=== PATIENT | female | born 1970 | race Caucasian/White ===

== ENCOUNTER 2016-12-20 13:55 | Emergency (ER) | payer MEDICARE, MEDICAID ==
[2016-12-20 14:08] VITALS: BP 145/106
[2016-12-20] MEDS ORDERED: Sodium Chloride 0.9% 1,000 ML IV ONE (14:17)
[2016-12-20 15:48] LABS: ACETAMINOPHEN < 10 ug/mL (10-30)
[2016-12-20] MEDS ORDERED: Ketorolac 30 MG/ML SDV IVPUSH ONE (17:49)
[2016-12-20] MEDS ORDERED: Ketorolac 60 MG/2 ML SDV IM ONE (17:51)
--- NOTE | 2016-12-20 18:44 | EDM.PDOC ---
ED HPI GENERAL MEDICAL PROBLEM - General Chief Complaint: Behavioral/Psych Stated Complaint: SUICIDAL Time Seen by Provider: 12/20/16 14:06 Source of Information: Reports: Patient, Family History Limitations: Reports: No Limitations - History of Present Illness INITIAL COMMENTS - FREE TEXT/NARRATIVE: 46 years old w f came with her family to the ed because of suicidal ideation, No Plan, denied any acute physical issues. Onset: Today Onset Date: 12/20/16 Onset Time: 05:00 Duration: Hour(s): Location: Reports: Generalized Improves with: Reports: None Worsens with: Reports: None - Related Data Allergies Allergy/AdvReac Type Severity Reaction Status Date / Time pregabalin [From Lyrica] Allergy Edema Verified 12/20/16 14:20 Home Meds: Home Meds ALPRAZolam [ALPRAZolam XR] 1 mg PO BID 12/20/16 [History] Desvenlafaxine [Desvenlafaxine ER] 100 mg PO DAILY 12/20/16 [History] Prazosin HCl [Prazosin] 1 mg PO DAILY 12/20/16 [History] QUEtiapine [SEROquel] 100 mg PO BEDTIME 12/20/16 [History] Ranitidine [Zantac] 150 mg PO BEDTIME 12/20/16 [History] Past Medical History - Past Health History Medical/Surgical History: Denies Medical/Surgical History Gastrointestinal History: Reports: [employer]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: Musculoskeletal History: Reports: Fibromyalgia Neurological History: Reports: Concussion, Migraines Psychiatric History: Reports: ADD, Anxiety, Depression, Panic Attack, Psych Hospitalization(s), Suicide Attempt, Suicidal Ideation - Infectious Disease History Infectious Disease History: Reports: Chicken Pox - Past Surgical History HEENT Surgical History: Reports: Tonsillectomy GI Surgical History: Reports: Colonoscopy, EGD Female Surgical History: Reports: Hysterectomy Social & Family History - Tobacco Use Smoking Status *Q: Never Smoker Second Hand Smoke Exposure: Yes - Caffeine Use Caffeine Use: Reports: None - Alcohol Use Days Per Week of Alcohol Use: 1 Number of Drinks Per Day: 1 Total Drinks Per Week: 1 - Recreational Drug Use Recreational Drug Use: No ED ROS GENERAL - Review of Systems Review Of Systems: See Below Constitutional: Reports: No Symptoms HEENT: Reports: No Symptoms Respiratory: Reports: No Symptoms Cardiovascular: Reports: No Symptoms Endocrine: Reports: No Symptoms GI/Abdominal: Reports: No Symptoms : Reports: No Symptoms Musculoskeletal: Reports: No Symptoms Skin: Reports: No Symptoms Neurological: Reports: No Symptoms Psychiatric: Reports: Suicidal Ideation Hematologic/Lymphatic: Reports: No Symptoms Immunologic: Reports: No Symptoms ED EXAM, BEHAVIORAL HEALTH - Physical Exam Exam: See Below Exam Limited By: No Limitations General Appearance: Alert, WD/WN, Other (depressed, crying) Eye Exam: Bilateral Eye: Normal Inspection Ears: Normal External Exam Nose: Normal Inspection Throat/Mouth: Normal Inspection Head: Atraumatic, Normocephalic Neck: Normal Inspection, Supple, Non-Tender Respiratory/Chest: No Respiratory Distress, Lungs Clear, Normal Breath Sounds Cardiovascular: Normal Peripheral Pulses, Regular Rate, Rhythm, No Edema GI/Abdominal: Normal Bowel Sounds, Soft, Non-Tender (Female) Exam: Deferred Rectal (Female) Exam: Deferred Back Exam: Normal Inspection Extremities: Normal Inspection, Increased Warmth Neurological: Alert, Normal Mood/Affect, CN II-XII Intact, Normal Cognition Psychiatric: Other (suicidal ideation) Skin Exam: Warm, Dry, Intact, Normal color COURSE, BEHAVIORAL HEALTH COMP - Course Vital Signs: Last Vital Signs Temp 36.7 C 12/20/16 14:06 Pulse 77 12/20/16 14:06 Resp 16 12/20/16 14:06 BP 145/106 H 12/20/16 14:06 Pulse Ox 100 12/20/16 14:06 46 years old w f came with her family to the ed because of suicidal ideation, No Plan, denied any acute physical issues pt was signed out to Dr. Best at 7 pm due to shift changes, pending Psych consultation. Pt was later -after 7 pm - on d/c'd by Dr. Best, as i was told on my next shift, next day. Orders, Labs, Meds: Laboratory Tests 12/20/16 12/20/16 12/20/16 Range/Units 14:40 14:40 14:45 WBC 6.0 (4.5-12.0) X10-3/uL RBC 4.89 (3.23-5.20) x10(6)uL Hgb 15.3 (11.5-15.5) g/dL Hct 43.5 (30.0-51.3) % MCV 89.0 (80-96) fL MCH 31.2 (27.7-33.6) pg MCHC 35.1 (32.2-35.4) g/dL RDW 11.4 L (11.5-15.5) % Plt Count 228 (125-369) X10(3)uL MPV 8.4 (7.4-10.4) fL Neut % (Auto) 67.9 (46-82) % Lymph % (Auto) 26.3 (13-37) % [place] % (Auto) 5.1 (4-12) % Eos % (Auto) 0 L (1.0-5.0) % Baso % (Auto) 1 (0-2) % Neut # (Auto) 4.1 (1.6-8.3) # Lymph # (Auto) 1.6 (0.6-5.0) # [place] # (Auto) 0.3 (0.0-1.3) # Eos # (Auto) 0.0 (0.0-0.8) # Baso # (Auto) 0.0 (0.0-0.2) # Sodium (135-145) mmol/L Potassium (3.5-5.3) mmol/L Chloride (100-110) mmol/L Carbon Dioxide (23-29) mmol/L BUN (5-20) mg/dL Creatinine (0.6-1.3) mg/dL Est Cr Clr Drug Dosing mL/min Estimated GFR (MDRD) (>60) BUN/Creatinine Ratio (9-20) Glucose (80-116) mg/dL Calcium (8.6-10.2) mg/dL Total Bilirubin (0.1-1.3) mg/dL Direct Bilirubin (0.1-0.2) mg/dL AST (5-27) IU/L ALT (14-26) IU/L Alkaline Phosphatase (56-112) IU/L Total Protein (6.0-8.0) g/dL Albumin (3.5-5.2) g/dL Amylase (28-100) U/L TSH, Ultra Sensitive (0.4-5.5) nlU/mL Urine HCG, Qual Negative (NEGATIVE) Salicylates (5.0-25.0) mg/dL Urine Opiates Screen Negative (NEGATIVE) Ur Oxycodone Screen Negative (NEGATIVE) Ur Propoxyphene Screen Negative (NEGATIVE) Acetaminophen (10-30) ug/mL Ur Barbituates Screen Negative (NEGATIVE) Ur Tricyclics Screen Negative (NEGATIVE) Ur Phencyclidine Scrn Negative (NEGATIVE) Ur Amphetamine Screen Negative (NEGATIVE) Urine MDMA Screen Negative (NEGATIVE) U Benzodiazepines Scrn Positive H (NEGATIVE) U Cocaine Metab Screen Negative (NEGATIVE) U Marijuana (THC) Screen Negative (NEGATIVE) Ethyl Alcohol (<0.01) % 12/20/16 12/20/16 12/20/16 Range/Units 14:45 14:45 14:45 WBC (4.5-12.0) X10-3/uL RBC (3.23-5.20) x10(6)uL Hgb (11.5-15.5) g/dL Hct (30.0-51.3) % MCV (80-96) fL MCH (27.7-33.6) pg MCHC (32.2-35.4) g/dL RDW (11.5-15.5) % Plt Count (125-369) X10(3)uL MPV (7.4-10.4) fL Neut % (Auto) (46-82) % Lymph % (Auto) (13-37) % [place] % (Auto) (4-12) % Eos % (Auto) (1.0-5.0) % Baso % (Auto) (0-2) % Neut # (Auto) (1.6-8.3) # Lymph # (Auto) (0.6-5.0) # [place] # (Auto) (0.0-1.3) # Eos # (Auto) (0.0-0.8) # Baso # (Auto) (0.0-0.2) # Sodium 136 (135-145) mmol/L Potassium 3.6 (3.5-5.3) mmol/L Chloride 103 (100-110) mmol/L Carbon Dioxide 26 (23-29) mmol/L BUN 13 (5-20) mg/dL Creatinine 0.8 (0.6-1.3) mg/dL Est Cr Clr Drug Dosing 83.13 mL/min Estimated GFR (MDRD) > 60 (>60) BUN/Creatinine Ratio 16.3 (9-20) Glucose 106 (80-116) mg/dL Calcium 8.9 (8.6-10.2) mg/dL Total Bilirubin 0.5 (0.1-1.3) mg/dL Direct Bilirubin 0.0 L (0.1-0.2) mg/dL AST 15 D (5-27) IU/L ALT 14 (14-26) IU/L Alkaline Phosphatase 60 (56-112) IU/L Total Protein 7.9 (6.0-8.0) g/dL Albumin 4.2 (3.5-5.2) g/dL Amylase 50 (28-100) U/L TSH, Ultra Sensitive 0.90 (0.4-5.5) nlU/mL Urine HCG, Qual (NEGATIVE) Salicylates < 4.0 L (5.0-25.0) mg/dL Urine Opiates Screen (NEGATIVE) Ur Oxycodone Screen (NEGATIVE) Ur Propoxyphene Screen (NEGATIVE) Acetaminophen < 10 L (10-30) ug/mL Ur Barbituates Screen (NEGATIVE) Ur Tricyclics Screen (NEGATIVE) Ur Phencyclidine Scrn (NEGATIVE) Ur Amphetamine Screen (NEGATIVE) Urine MDMA Screen (NEGATIVE) U Benzodiazepines Scrn (NEGATIVE) U Cocaine Metab Screen (NEGATIVE) U Marijuana (THC) Screen (NEGATIVE) Ethyl Alcohol < 0.01 (<0.01) % Medications Discontinued Medications Generic Name Dose Route Start Last Admin Trade Name Freq PRN Reason Stop Dose Admin Sodium Chloride 1,000 mls @ 999 mls/hr 12/20/16 14:17 Normal Saline IV 12/20/16 15:17 .BOLUS ONE Ketorolac Tromethamine 30 mg 12/20/16 17:49 Toradol IVPUSH 12/20/16 17:50 ONETIME ONE Ketorolac Tromethamine 60 mg 12/20/16 17:51 12/20/16 18:15 Toradol IM 12/20/16 17:52 60 mg ONETIME ONE Administration Departure - Departure Time of Disposition: 20:00 Disposition: Home, Self-Care 01 Condition: good Clinical Impression: Suicidal ideation - Discharge Information Referrals: Zachary Sebastian MD [Primary Care Provider] - Forms: ED Department Discharge Additional Instructions: Keep appointment with therapist in am. Stay with responsible adult tonight. If your feeling get worse during night return to ED.
== END 2016-12-20 19:25 | disposition home or self-care (01) ==
LOC: FB.ED 13:55
DX: R45.851 Suicidal ideations (principal); F41.9 Anxiety disorder, unspecified; F32.9 Major depressive disorder, single episode, unspecified; Z90.710 Acquired absence of both cervix and uterus; Z79.899 Other long term (current) drug therapy; Z88.8 Allergy status to other drugs, medicaments and biological substances
CPT/HCPCS: 36415; 80048; 80076; 80305; 81025; 82150; 84443; 85025; 99284; G0480; J1885

== ENCOUNTER 2017-04-23 12:41 | Emergency (ER) | payer OTHER, MEDICARE, MEDICAID ==
[2017-04-23] MEDS ORDERED: Lidocaine 2% with EPINEPHrine 1:100,000 20 ML MDV INJECT ONE (12:42)
[2017-04-23] MEDS ORDERED: Lidocaine 1% with EPINEPHrine 1:100,000 20 ML MDV INJECT ONE (13:23)
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
[2017-04-23] MEDS ORDERED: Naproxen 500 MG Tab PO ONE (15:56)
[2017-04-23] MEDS ORDERED: Acetaminophen 325 MG Tab PO ONE (15:56)
[2017-04-23 18:03] LABS: ACETAMINOPHEN < 10 ug/mL (10-30)
[2017-04-23 22:54] VITALS: BP 132/68
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
== END 2017-04-23 20:40 | disposition home or self-care (01) ==
LOC: FB.ED 12:41
DX: S06.0X0A Concussion without loss of consciousness, initial encounter (principal); S81.011A Laceration without foreign body, right knee, initial encounter; S93.401A Sprain of unspecified ligament of right ankle, initial encounter; S00.83XA Contusion of other part of head, initial encounter; G43.909 Migraine, unspecified, not intractable, without status migrainosus; F98.8 Other specified behavioral and emotional disorders with onset usually occurring in childhood and adolescence; F41.9 Anxiety disorder, unspecified; F32.9 Major depressive disorder, single episode, unspecified; Z90.89 Acquired absence of other organs; Z88.8 Allergy status to other drugs, medicaments and biological substances; Z90.710 Acquired absence of both cervix and uterus; V49.9XXA Car occupant (driver) (passenger) injured in unspecified traffic accident, initial encounter
CPT/HCPCS: 12002; 36415; 70450; 70486; 71101; 72125; 73610; 80048; 80053; 80305; 81001; 81025; 84443; 85025; 99285; A9270; G0480; 99284

== ENCOUNTER 2017-05-28 17:41 | Emergency (ER) | payer MEDICARE, MEDICAID ==
[2017-05-28] MEDS ORDERED: Sodium Chloride 0.9% 1,000 ML IV SCH (18:00)
[2017-05-28 18:18] VITALS: BP 115/69
[2017-05-28] MEDS ORDERED: Sodium Chloride 0.9% 10 ML Syringe FLUSH PRN (18:19)
[2017-05-28 18:30] LABS: ACETAMINOPHEN < 10 ug/mL (10-30)
--- NOTE | 2017-05-28 22:20 | EDM.PDOCBH ---
ED HPI GENERAL MEDICAL PROBLEM - General Chief Complaint: Behavioral/Psych Stated Complaint: POSSIBLE OVERDOSE Time Seen by Provider: 05/28/17 18:09 Source of Information: Reports: Patient, EMS History Limitations: Reports: No Limitations - History of Present Illness INITIAL COMMENTS - FREE TEXT/NARRATIVE: 46 y.o.w.f came by ems to the ed because she took a "handful" of Depakote, unwitnessed. Pt stated she was "supid" to take them. She took them because she did want to be alone. He SO stated he wants to leave her. Pt denied any physical issues, no N/V/D. She attempted in the past suicide when she was admitted to the Hospital. Pt is scheduled to see her psychiatrist tomorrow and Monday. BP 115/61 pulse 65 Temp 35.5 RR 19 Pulse ox 97 Onset: Today Onset Date: 05/28/17 Onset Time: 14:00 Duration: Intermittent, Improving Quality: Reports: Other (depressed) Improves with: Reports: None Worsens with: Reports: None Context: Reports: Other (suicidal attempt) - Related Data Allergies Allergy/AdvReac Type Severity Reaction Status Date / Time pregabalin [From Lyrica] Allergy Edema Verified 05/28/17 18:07 Home Meds: Home Meds traZODone 100 mg PO BEDTIME 04/23/17 [History] Divalproex Sodium [Depakote ER] 1,000 mg PO BEDTIME 05/28/17 [History] FLUoxetine HCl [Prozac] 20 mg PO DAILY 05/28/17 [History] Past Medical History - Past Health History Medical/Surgical History: Denies Medical/Surgical History Cardiovascular History: Reports: None Respiratory History: Reports: None Gastrointestinal History: Reports: PUD Genitourinary History: Reports: None ANIMAL SURGEON History: Reports: Musculoskeletal History: Reports: Fibromyalgia Neurological History: Reports: Concussion, Migraines Psychiatric History: Reports: ADD, Anxiety, Depression, Panic Attack, Psych Hospitalization(s), Suicide Attempt, Suicidal Ideation Endocrine/Metabolic History: Reports: None Hematologic History: Reports: None Immunologic History: Reports: None Oncologic (Cancer) History: Reports: None Dermatologic History: Reports: None - Infectious Disease History Infectious Disease History: Reports: Chicken Pox - Past Surgical History Head Surgeries/Procedures: Reports: None HEENT Surgical History: Reports: Tonsillectomy Cardiovascular Surgical History: Reports: None GI Surgical History: Reports: Colonoscopy, EGD Female Surgical History: Reports: Hysterectomy Neurological Surgical History: Reports: None Social & Family History - Family History Family Medical History: Noncontributory - Tobacco Use Smoking Status *Q: Never Smoker Second Hand Smoke Exposure: Yes - Caffeine Use Caffeine Use: Reports: Coffee - Alcohol Use Days Per Week of Alcohol Use: 1 Number of Drinks Per Day: 1 Total Drinks Per Week: 1 - Recreational Drug Use Recreational Drug Use: No Other Recreational Drug Type: patient's friend said that patient is a drug seeker; prescribed drugs like narcotics and anti- anxiety medications. ED ROS GENERAL - Review of Systems Review Of Systems: See Below Constitutional: Reports: No Symptoms HEENT: Reports: No Symptoms Respiratory: Reports: No Symptoms Cardiovascular: Reports: No Symptoms Endocrine: Reports: No Symptoms GI/Abdominal: Reports: No Symptoms : Reports: No Symptoms Musculoskeletal: Reports: No Symptoms Skin: Reports: No Symptoms Neurological: Reports: No Symptoms Psychiatric: Reports: Suicidal Ideation Hematologic/Lymphatic: Reports: No Symptoms Immunologic: Reports: No Symptoms ED EXAM, BEHAVIORAL HEALTH - Physical Exam Exam: See Below Exam Limited By: No Limitations General Appearance: Alert, WD/WN, No Apparent Distress, Mild Distress Eye Exam: Bilateral Eye: Normal Inspection Ears: Normal External Exam Nose: Normal Inspection Throat/Mouth: Normal Inspection Head: Atraumatic, Normocephalic Neck: Normal Inspection Respiratory/Chest: No Respiratory Distress, Lungs Clear, Normal Breath Sounds Cardiovascular: Normal Peripheral Pulses, Regular Rate, Rhythm, No Edema, No Gallop GI/Abdominal: Normal Bowel Sounds (Female) Exam: Deferred Rectal (Female) Exam: Deferred Back Exam: Normal Inspection, Full Range of Motion Extremities: Normal Inspection, Normal Range of Motion Neurological: Alert, Normal Mood/Affect, CN II-XII Intact, Normal Cognition Psychiatric: Alert, Normal Affect, Normal Cognition, Oriented, Depressed Mood Skin Exam: Warm, Dry, Intact, Normal color, No rash EKG INTERPRETATION EKG Date: 05/28/17 Time: 18:45 Rhythm: NSR Rate (Beats/Min): 57 [place]: Normal P-Wave: Present QRS: Normal ST-T: Normal QT: Normal Comparison: NA - No Prior EKG COURSE, BEHAVIORAL HEALTH COMP - Course Vital Signs: Last Vital Signs Temp 35.5 C 05/28/17 18:09 Pulse 61 05/28/17 18:09 Resp 19 05/28/17 18:09 BP 115/69 05/28/17 18:09 Pulse Ox 99 05/28/17 18:09 46 y.o.w.f came by ems to the ed because she took a "handful" of Depakote, unwitnessed. Pt stated she was "supid" to take them. She took them because she did want to be alone. He SO stated he wants to leave her. Pt denied any physical issues, no N/V/D. She attempted in the past suicide when she was admitted to the Hospital. Pt is scheduled to see her psychiatrist tomorrow and Monday. BP 115/61 pulse 65 Temp 35.5 RR 19 Pulse ox 97 PE; Depressed mood, NL PE Labs: CBC Nl depakote level 28,4 (subtherapeutic) BMP Nl but potassium is 3.4 Poison control was called by nurse: Observe, draw Depakote level, NS Consultation: Psych Rosa: Pt is not suicidal and can be safely D/C with her to home and will see her PMD/Psych at 8 am Plan: D/C with instructions Orders, Labs, Meds: Active Orders 24 hr Category Date Time Status EKG Documentation Completion [RC] ASDIRECTED Care 05/28/17 18:44 Active Saline Lock Insert [OM.PC] Routine Oth 05/28/17 18:19 Ordered EKG 12 Lead [EK] Routine Ther 05/28/17 18:43 Ordered Laboratory Tests 05/28/17 05/28/17 05/28/17 Range/Units 18:05 18:05 18:05 WBC 6.0 (4.5-12.0) X10-3/uL RBC 4.70 (3.23-5.20) x10(6)uL Hgb 14.6 (11.5-15.5) g/dL Hct 42.5 (30.0-51.3) % MCV 90.4 (80-96) fL MCH 31.1 (27.7-33.6) pg MCHC 34.4 (32.2-35.4) g/dL RDW 11.6 (11.5-15.5) % Plt Count 153 (125-369) X10(3)uL MPV 9.4 (7.4-10.4) fL Neut % (Auto) 52.7 (46-82) % Lymph % (Auto) 39.8 H (13-37) % Norman % (Auto) 6.4 (4-12) % Eos % (Auto) 0 L (1.0-5.0) % Baso % (Auto) 1 (0-2) % Neut # (Auto) 3.1 (1.6-8.3) # Lymph # (Auto) 2.4 (0.6-5.0) # Norman # (Auto) 0.4 (0.0-1.3) # Eos # (Auto) 0.0 (0.0-0.8) # Baso # (Auto) 0.1 (0.0-0.2) # Sodium 138 (135-145) mmol/L Potassium 3.4 L (3.5-5.3) mmol/L Chloride 104 (100-110) mmol/L Carbon Dioxide 26 (23-29) mmol/L BUN 8 (5-20) mg/dL Creatinine 0.8 (0.6-1.3) mg/dL Est Cr Clr Drug Dosing 83.13 mL/min Estimated GFR (MDRD) > 60 (>60) BUN/Creatinine Ratio 10.0 (9-20) Glucose 109 (80-116) mg/dL Calcium 8.7 (8.6-10.2) mg/dL TSH, Ultra Sensitive 1.67 (0.4-5.5) nlU/mL Salicylates < 4.0 L (5.0-25.0) mg/dL Urine Opiates Screen (NEGATIVE) Ur Oxycodone Screen (NEGATIVE) Ur Propoxyphene Screen (NEGATIVE) Acetaminophen < 10 L (10-30) ug/mL Ur Barbituates Screen (NEGATIVE) Valproic Acid Valpro Last Dose Date Valpro Last Dose Time Ur Tricyclics Screen (NEGATIVE) Ur Phencyclidine Scrn (NEGATIVE) Ur Amphetamine Screen (NEGATIVE) Urine MDMA Screen (NEGATIVE) U Benzodiazepines Scrn (NEGATIVE) U Cocaine Metab Screen (NEGATIVE) U Marijuana (THC) Screen (NEGATIVE) Ethyl Alcohol (<0.01) % 05/28/17 05/28/17 05/28/17 Range/Units 18:05 18:05 20:00 WBC (4.5-12.0) X10-3/uL RBC (3.23-5.20) x10(6)uL Hgb (11.5-15.5) g/dL Hct (30.0-51.3) % MCV (80-96) fL MCH (27.7-33.6) pg MCHC (32.2-35.4) g/dL RDW (11.5-15.5) % Plt Count (125-369) X10(3)uL MPV (7.4-10.4) fL Neut % (Auto) (46-82) % Lymph % (Auto) (13-37) % Norman % (Auto) (4-12) % Eos % (Auto) (1.0-5.0) % Baso % (Auto) (0-2) % Neut # (Auto) (1.6-8.3) # Lymph # (Auto) (0.6-5.0) # Norman # (Auto) (0.0-1.3) # Eos # (Auto) (0.0-0.8) # Baso # (Auto) (0.0-0.2) # Sodium (135-145) mmol/L Potassium (3.5-5.3) mmol/L Chloride (100-110) mmol/L Carbon Dioxide (23-29) mmol/L BUN (5-20) mg/dL Creatinine (0.6-1.3) mg/dL Est Cr Clr Drug Dosing mL/min Estimated GFR (MDRD) (>60) BUN/Creatinine Ratio (9-20) Glucose (80-116) mg/dL Calcium (8.6-10.2) mg/dL TSH, Ultra Sensitive (0.4-5.5) nlU/mL Salicylates (5.0-25.0) mg/dL Urine Opiates Screen Negative (NEGATIVE) Ur Oxycodone Screen Negative (NEGATIVE) Ur Propoxyphene Screen Negative (NEGATIVE) Acetaminophen (10-30) ug/mL Ur Barbituates Screen Negative (NEGATIVE) Valproic Acid 28.4 Valpro Last Dose Date 05/28/2017 Valpro Last Dose Time 1730 Ur Tricyclics Screen Negative (NEGATIVE) Ur Phencyclidine Scrn Negative (NEGATIVE) Ur Amphetamine Screen Negative (NEGATIVE) Urine MDMA Screen Negative (NEGATIVE) U Benzodiazepines Scrn Negative (NEGATIVE) U Cocaine Metab Screen Negative (NEGATIVE) U Marijuana (THC) Screen Negative (NEGATIVE) Ethyl Alcohol < 0.01 (<0.01) % Medications Discontinued Medications Generic Name Dose Route Start Last Admin Trade Name Freq PRN Reason Stop Dose Admin Sodium Chloride 1,000 mls @ 125 mls/hr 05/28/17 18:00 05/28/17 18:27 Normal Saline IV 125 mls/hr ASDIRECTED ANALI Administration Sodium Chloride 1,000 mls @ 999 mls/hr 05/28/17 22:32 05/28/17 22:50 Normal Saline IV 05/28/17 23:32 Not Given .BOLUS ONE Sodium Chloride 10 ml 05/28/17 18:19 05/28/17 18:26 Saline Flush FLUSH 10 ml ASDIRECTED PRN Administration Keep Vein Open Departure - Departure Time of Disposition: 22:16 Disposition: Home, Self-Care 01 Condition: Good Clinical Impression: Suicidal ideation - Discharge Information Referrals: Zachary Sebastian MD [Primary Care Provider] - Forms: ED Department Discharge Additional Instructions: you committed to the ED staff and Psychologist you will be observed by your and will not do any harm to you. You have an appointment at 8 am tomorrow and on Monday as well. Please come back if your symptoms worsen acutely. - My Orders Last 24 Hours: My Active Orders 05/28/17 18:19 Saline Lock Insert [OM.PC] Routine 05/28/17 18:43 EKG 12 Lead [EK] Routine 05/28/17 18:44 EKG Documentation Completion [RC] ASDIRECTED - Assessment/Plan Last 24 Hours: My Active Orders 05/28/17 18:19 Saline Lock Insert [OM.PC] Routine 05/28/17 18:43 EKG 12 Lead [EK] Routine 05/28/17 18:44 EKG Documentation Completion [RC] ASDIRECTED
[2017-05-28] MEDS ORDERED: Sodium Chloride 0.9% 1,000 ML IV ONE (22:32)
== END 2017-05-28 22:53 | disposition home or self-care (01) ==
LOC: FB.ED 17:41
DX: R45.851 Suicidal ideations (principal); F32.9 Major depressive disorder, single episode, unspecified; Z88.8 Allergy status to other drugs, medicaments and biological substances; Z79.899 Other long term (current) drug therapy
CPT/HCPCS: 36415; 80048; 80164; 80305; 84443; 85025; 93005; 96360; 96361; 99284; G0480; J7040; J7050; 99285

== ENCOUNTER 2017-12-30 19:19 | Emergency (ER) | payer MEDICARE, MEDICAID ==
[2017-12-30] MEDS ORDERED: Acetaminophen 325 MG Tab PO ONE (21:00)
[2017-12-30 21:17] LABS: ACETAMINOPHEN < 2 ug/mL (10-30)
[2017-12-30 22:26] VITALS: BP 160/112
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
== END 2017-12-30 22:45 ==
LOC: FB.ED 19:19
DX: F41.9 Anxiety disorder, unspecified (principal); M79.7 Fibromyalgia; R45.851 Suicidal ideations
CPT/HCPCS: 36415; 80053; 80305; 81025; 84443; 85025; 99285; A9270; G0480

== ENCOUNTER 2018-12-23 17:01 | Emergency (ER) | payer MEDICARE, MEDICAID ==
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
[2018-12-23 18:56] VITALS: BP 119/77
== END 2018-12-23 18:40 | disposition home or self-care (01) ==
LOC: FB.ED 17:01
DX: F32.9 Major depressive disorder, single episode, unspecified (principal); Z98.890 Other specified postprocedural states; Z90.710 Acquired absence of both cervix and uterus
CPT/HCPCS: 99283

== ENCOUNTER 2020-08-19 06:41 | Day surgery (SDC) | payer MEDICARE, MEDICAID ==
[2020-08-19] MEDS ORDERED: Propofol 200 MG/20 ML SDV IV ONE (06:42)
[2020-08-19] MEDS ORDERED: Lidocaine 2% 5 ML SDV INJECT ONE (06:42)
[2020-08-19] MEDS ORDERED: Sodium Chloride 0.9% 10 ML Syringe FLUSH PRN (06:45)
[2020-08-19] MEDS ORDERED: Lactated Ringers 1,000 ML IV SCH (06:45)
[2020-08-19] MEDS ORDERED: Simethicone Drops 40 MG/0.6 ML 30 ML Bottle ONE (08:12)
--- NOTE | 2020-08-19 08:31 | PCM.OPNOTE ---
- General Post-Op/Procedure Note Date of Surgery/Procedure: 08/19/20 Operative Procedure(s): c scope with biopsy. egd with biopsy. both cold forceps Findings: mild gastitis with fundic gland polyps normal appearing terminal ileum and colon Pre Op Diagnosis: hx of epigastric abd pain. diarrhea Post-Op Diagnosis: mild gastitis with fundic gland polyps. normal appearing terminal ileum and colon Anesthesia Technique: [facility] Primary Surgeon: Breezy Elmore Anesthesia Provider: Zachary Duke Pathology: stomach terminal ileum colon Complications: None Condition: Good Free Text/Narrative:: see dictation #[id number]
[2020-08-19 10:51] VITALS: BP 128/75; PULSE 54
--- NOTE | 2020-08-19 11:20 | OR ---
DATE OF OPERATION: 08/19/2020 SURGEON: Breezy Elmore MD PROCEDURE PERFORMED: EGD and colonoscopy, both cold forceps biopsy. PREOPERATIVE DIAGNOSIS: History of epigastric abdominal pain and diarrhea. POSTOPERATIVE DIAGNOSIS: Gastritis with fundic gland hyperplasia, normal- appearing terminal ileum as well as normal-appearing colon. INDICATIONS FOR PROCEDURE: Ms. Quintero is a 49-year-old white female who is referred with a history of some abdominal pain. This is primarily located in the epigastrium. In addition, she has been having some diarrhea up to 6 or more loose watery stools per day. She denies any blood or mucus. On exam, she was noted to have some tenderness in the epigastrium that appeared more related to gastric, and therefore, she was offered and accepted an upper endoscopy as well as a colonoscopy. DESCRIPTION OF PROCEDURE: After an excellent IV sedation was administered, the bite block was inserted. The flexible endoscope was passed without difficulty down the patient's esophagus into the stomach. Stomach was insufflated. Scope passed through the pylorus to the second portion of the duodenum and then slowly withdrawn. The following findings were noted: The duodenum itself was unremarkable. Stomach demonstrated some diffuse gastritis. There were scattered fundic gland hyperplasia along the greater curve of the stomach, which was biopsied with cold biopsy forceps. Gastric biopsies were also taken and submitted in one container. GE junction measured approximately 40 cm and the esophagus itself was unremarkable. The stomach was deflated and the scope was removed. Our attention was then turned to the patient's colon. Digital rectal exam was performed. No marked abnormality was noted. Rectal tone was adequate. The flexible colonoscope was inserted and advanced to the cecum. The prep was excellent. We were able to intubate the terminal ileum and advance for a short distance. The mucosa itself was normal in appearance. We did obtain a biopsy of the terminal ileum, and then, withdrew the scope into the colon. The following findings were noted: Cecum and ascending colon were unremarkable. Transverse colon, unremarkable. Descending colon, unremarkable. Sigmoid and rectum, unremarkable. In each major anatomic segment of the colon, several random biopsies were taken in an effort to determine if there was any microscopic colitis going on to explain her diarrhea. These were all submitted in one container. The patient tolerated the procedure well, was taken to recovery room. /[id number] /[id number]
== END 2020-08-19 09:14 | disposition home or self-care (01) ==
LOC: FB.SDS 06:41
PROVIDERS: ATTEND Surgery
DX: R19.7 Diarrhea, unspecified (principal); K29.50 Unspecified chronic gastritis without bleeding; K31.7 Polyp of stomach and duodenum; Z79.899 Other long term (current) drug therapy; Z98.890 Other specified postprocedural states
CPT/HCPCS: 00813-QZ; 88305; 88342; A9270-GY; J2001; J2704; J7120

== ENCOUNTER 2022-06-02 16:53 | Emergency (ER) | payer MEDICARE, MEDICAID ==
[2022-06-02 17:15] LABS: ESTIMATED GFR 90 mL/min (>60)
[2022-06-02] MEDS ORDERED: Meclizine 25 MG Tab PO ONE (17:46)
[2022-06-02] MEDS ORDERED: Promethazine 25 MG/ML SDV IM STA (17:59)
[2022-06-02] MEDS ORDERED: amLODIPine 10 MG Tab PO STA (18:55)
[2022-06-02 20:21] VITALS: PULSE 72
[2022-06-02 20:30] VITALS: BP 149/101
== END 2022-06-02 19:15 | disposition home or self-care (01) ==
LOC: FB.ED 16:53
DX: G43.909 Migraine, unspecified, not intractable, without status migrainosus (principal); E66.9 Obesity, unspecified; Z68.30 Body mass index [BMI] 30.0-30.9, adult
CPT/HCPCS: 36415; 70450; 71045; 80053; 84484; 85025; 85610; 85730; 93005; 96372; 99284; A9270-GY; J2550; J3360

== ENCOUNTER 2023-05-01 17:37 | Emergency (ER) | payer MEDICARE, MEDICAID ==
[2023-05-01 18:30] VITALS: BP 141/100
[2023-05-01 19:28] LABS: BASOPHILS PERCENT AUTO 0.7 % (0.2-1.5); EOSINOPHILS ABSOLUTE AUTO 0.1 x10-3/uL (0.0-0.8); HEMATOCRIT 44.6 % (34.2-48.2); HEMOGLOBIN 15.6 g/dL (11.4-15.5); LYMPHOCYTES ABSOLUTE AUTO 2.1 x10-3/uL (1.0-4.4); LYMPHOCYTES PERCENT AUTO 31.8 % (18.4-52.1); MEAN CORPUSCULAR HEMOGLOBIN 31.8 pg (23.9-33.9); MEAN CORPUSCULAR VOLUME 90.9 fL (76.7-100.5); MEAN PLATELET VOLUME 8.6 fL (7.1-12.4); MONOCYTES ABSOLUTE AUTO 0.4 x10-3/uL (0.3-1.0); MONOCYTES PERCENT AUTO 6.9 % (4.4-15.7); NEUTROPHILS ABSOLUTE AUTO 3.8 x10-3/uL (1.5-6.3); NEUTROPHILS PERCENT AUTO 58.6 % (30.8-76.2); PLATELET COUNT,PLT 249 x10(3)uL (151-488); RED BLOOD CELL COUNT 4.91 x10(6)uL (3.60-5.20); RED CELL DISTRIBUTION WIDTH 12.3 % (12.3-16.5); WHITE BLOOD CELL COUNT,WBC 6.5 x10-3/uL (3.0-10.3)
[2023-05-01 19:32] LABS: BLOOD UREA NITROGEN,BUN 7 mg/dL (7-18); BUN/CREATININE RATIO 7.8 (9-20); CALCIUM 8.7 mg/dL (8.6-10.2); CARBON DIOXIDE,CO2 27 mmol/L (21-32); CHLORIDE,CL 105 mmol/L (100-110); CREATININE 0.9 mg/dL (0.55-1.02); EST CRCL DRUG DOSING (CG) 69.23 mL/min; ESTIMATED GFR 77 mL/min (>60); GLUCOSE RANDOM 99 mg/dL (80-116); POTASSIUM,K 3.7 mmol/L (3.5-5.3); SODIUM,NA 143 mmol/L (135-145)
[2023-05-01 19:39] LABS: A/G RATIO 0.9; ALANINE AMINOTRANSFERASE,ALT 27 U/L (12-36); ALBUMIN 3.6 g/dL (3.5-5.2); ALKALINE PHOSPHATASE 77 IU/L (56-112); ASPARTATE AMNIOTRANSFERASE,AST 18 IU/L (5-25); BILIRUBIN TOTAL 0.4 mg/dL (0.1-1.3); PROTEIN TOTAL,TP 7.6 g/dL (6.0-8.0); SALICYLATE 0.4 mg/dL (<2.8)
[2023-05-01 19:39] LABS: BILIRUBIN,URINE NEGATIVE (NEGATIVE); GLUCOSE,URINE NORMAL (NORMAL); KETONES,URINE NEGATIVE (NEGATIVE); LEUKOCYTE ESTERASE,URINE NEGATIVE (NEGATIVE); NITRITE,URINE NEGATIVE (NEGATIVE); OCCULT BLOOD,URINE NEGATIVE (NEGATIVE); PROTEIN,URINE NEGATIVE (NEGATIVE); UROBILINOGEN,URINE NORMAL (NEGATIVE)
[2023-05-01 19:44] LABS: ACETAMINOPHEN < 2 ug/mL (<2)
[2023-05-01 19:45] LABS: TSH ULTRASENSITIVE 1.35 IU/mL (0.36-3.74)
[2023-05-01 19:48] LABS: ETHANOL BLOOD MEDICAL < 0.03 % (<0.03)
[2023-05-01 19:51] LABS: APPEARANCE,URINE CLEAR (CLEAR); BACTERIA,URINE FEW (NS); COLOR,URINE YELLOW (YELLOW); RBC,URINE 0-5 (0-5); SQUAMOUS EPITHELIAL CELLS,UR FEW (NS,R,O); WBC,URINE 0-5 (0-5)
[2023-05-01 19:52] LABS: AMPHETAMINES SCREEN, URINE POSITIVE (NEGATIVE); BENZODIAZEPINES SCREEN,URINE NEGATIVE (NEGATIVE); METHAMPHETAMINE SCREEN, URINE NEGATIVE (NEGATIVE); THC SCREEN,URINE NEGATIVE (NEGATIVE)
[2023-05-01 19:53] LABS: BARBITURATE SCREEN,URINE NEGATIVE (NEGATIVE); BUPRENORPHINE SCREEN,URINE NEGATIVE (NEGATIVE); METHADONE SCREEN, URINE NEGATIVE (NEGATIVE); OXYCODONE SCREEN,URINE NEGATIVE (NEGATIVE); PROPOXYPHENE SCREEN,URINE NEGATIVE (NEGATIVE)
[2023-05-01] MEDS ORDERED: Acetaminophen 500 MG Tab PO ONE (20:56)
[2023-05-01 21:32] VITALS: PULSE 74
== END 2023-05-01 21:32 | disposition home or self-care (01) ==
LOC: FB.ED 17:37
DX: F34.1 Dysthymic disorder (principal); R45.851 Suicidal ideations; E66.9 Obesity, unspecified; Z68.29 Body mass index [BMI] 29.0-29.9, adult; Z20.822 Contact with and (suspected) exposure to COVID-19; Z79.899 Other long term (current) drug therapy
CPT/HCPCS: 36415; 80053; 80143; 80179; 80307; 81001; 84443; 85025; 99284; A9270; U0002

== ENCOUNTER 2023-05-26 21:01 | Emergency (ER) | payer MEDICARE, MEDICAID ==
[2023-05-26] MEDS ORDERED: Meclizine 25 MG Tab PO ONE (21:17)
[2023-05-26 21:33] LABS: BASOPHILS ABSOLUTE AUTO 0.1 x10-3/uL (0.0-0.1); BASOPHILS PERCENT AUTO 0.8 % (0.2-1.5); EOSINOPHILS ABSOLUTE AUTO 0.2 x10-3/uL (0.0-0.8); EOSINOPHILS PERCENT AUTO 2.7 % (0.6-8.1); HEMATOCRIT 42.1 % (34.2-48.2); HEMOGLOBIN 14.4 g/dL (11.4-15.5); LYMPHOCYTES ABSOLUTE AUTO 2.9 x10-3/uL (1.0-4.4); LYMPHOCYTES PERCENT AUTO 39.5 % (18.4-52.1); MEAN CORPUSCULAR HEMOGLOBIN 31.1 pg (23.9-33.9); MEAN CORPUSCULAR HGB CONC 34.3 g/dL (31.9-34.8); MEAN CORPUSCULAR VOLUME 90.6 fL (76.7-100.5); MEAN PLATELET VOLUME 8.6 fL (7.1-12.4); MONOCYTES ABSOLUTE AUTO 0.6 x10-3/uL (0.3-1.0); MONOCYTES PERCENT AUTO 8.5 % (4.4-15.7); NEUTROPHILS ABSOLUTE AUTO 3.5 x10-3/uL (1.5-6.3); NEUTROPHILS PERCENT AUTO 48.5 % (30.8-76.2); PLATELET COUNT,PLT 241 x10(3)uL (151-488); RED BLOOD CELL COUNT 4.64 x10(6)uL (3.60-5.20); RED CELL DISTRIBUTION WIDTH 12.2 % (12.3-16.5); WHITE BLOOD CELL COUNT,WBC 7.3 x10-3/uL (3.0-10.3)
[2023-05-26 21:39] LABS: BLOOD UREA NITROGEN,BUN 10 mg/dL (7-18); BUN/CREATININE RATIO 12.5 (9-20); CALCIUM 8.5 mg/dL (8.6-10.2); CARBON DIOXIDE,CO2 30 mmol/L (21-32); CHLORIDE,CL 104 mmol/L (100-110); CREATININE 0.8 mg/dL (0.55-1.02); EST CRCL DRUG DOSING (CG) 77.88 mL/min; ESTIMATED GFR 89 mL/min (>60); GLUCOSE RANDOM 103 mg/dL (80-116); POTASSIUM,K 3.6 mmol/L (3.5-5.3); SODIUM,NA 140 mmol/L (135-145)
[2023-05-26 21:40] LABS: PTT,PARTIAL THROMBOPLSTIN TIME 25.6 SECONDS (24.4-33.2)
[2023-05-26 21:42] LABS: INR 1.02 (1.00-1.24); PROTHROMBIN TIME 10.5 sec (9.0-11.1)
[2023-05-26 21:45] LABS: ALANINE AMINOTRANSFERASE,ALT 26 U/L (12-36); ALBUMIN 3.4 g/dL (3.5-5.2); ALKALINE PHOSPHATASE 59 IU/L (56-112); ASPARTATE AMNIOTRANSFERASE,AST 14 IU/L (5-25); BILIRUBIN TOTAL 0.4 mg/dL (0.1-1.3); PROTEIN TOTAL,TP 6.9 g/dL (6.0-8.0)
[2023-05-26] MEDS ORDERED: LORazepam 2 MG/ML SDV IM ONE (22:10)
[2023-05-26 22:22] VITALS: BP 145/93; PULSE 60
== END 2023-05-26 22:40 | disposition home or self-care (01) ==
LOC: FB.ED 21:01
DX: H81.10 Benign paroxysmal vertigo, unspecified ear (principal); F41.1 Generalized anxiety disorder; E66.9 Obesity, unspecified; Z68.29 Body mass index [BMI] 29.0-29.9, adult; Z79.899 Other long term (current) drug therapy; Z90.710 Acquired absence of both cervix and uterus; Z86.16 Personal history of COVID-19
CPT/HCPCS: 36415; 70450; 80053; 84484; 85025; 85610; 85730; 93005; 93010; 96372; 99283; 99284; A9270-GY; J2060

== ENCOUNTER 2024-12-11 07:53 | Day surgery (SDC) | payer MEDICARE, MEDICAID ==
[2024-12-11] MEDS ORDERED: Midazolam 1 MG/ML 2 ML SDV IV ONE (07:54)
[2024-12-11] MEDS ORDERED: Lidocaine 2% 100 MG/5 ML Syringe IVPUSH ONE (07:54)
[2024-12-11] MEDS ORDERED: Propofol 200 MG/20 ML SDV IV ONE (07:54)
[2024-12-11] MEDS ORDERED: Sodium Chloride 0.9% 10 ML Syringe FLUSH PRN (08:00)
[2024-12-11 08:25] VITALS: BP 129/88; PULSE 64
[2024-12-11] MEDS: Lactated Ringers 1,000 ML IV SCH (08:41)
[2024-12-11] MEDS: Simethicone Drops 40 MG/0.6 ML 30 ML Bottle ONE (09:55)
== END 2024-12-11 11:17 | disposition home or self-care (01) ==
LOC: FB.SDS 07:53
PROVIDERS: ATTEND Surgery
DX: K29.50 Unspecified chronic gastritis without bleeding (principal); R13.10 Dysphagia, unspecified; K29.80 Duodenitis without bleeding; F41.9 Anxiety disorder, unspecified; F32.A Depression, unspecified; I10 Essential (primary) hypertension; Z79.899 Other long term (current) drug therapy; Z80.0 Family history of malignant neoplasm of digestive organs
CPT/HCPCS: 00731; 43239; 88305; 88342; A9270; J2250; J2704; J7120